=== PATIENT | female | born 1970 | race Hispanic/Latino ===

== ENCOUNTER 2022-01-02 21:46 | Emergency (ER) | payer OTHER ==
[~2022-01-02] VITALS: Ht 152.4 cm; Wt 77.1 kg
[~2022-01-02 21:46] MED LIST: CRESTOR20 MG PO; DIOVAN HCT 1601 EACH; GLUCOPHAGE500 MG PO; [UNRECOGNIZED DRUG - REMARK]
[2022-01-02] MEDS ORDERED: TETANUS/DIPHTHERIA TOX ADULT 0.5 ML SYR IM ONE (22:15)
[2022-01-02] MEDS ORDERED: HYDROCODONE/APAP 5MG-325MG TAB PO ONE (22:15)
[2022-01-02] MEDS ORDERED: ULTRAM50 MG PO (22:41)
[2022-01-02] MEDS ORDERED: CEPHALEXIN500 MG PO (22:43)
== END 2022-01-02 22:50 | disposition home or self-care (01) ==
LOC: ER 21:53
DX: T23.232A Burn of second degree of multiple left fingers (nail), not including thumb, initial encounter (principal); T23.231A Burn of second degree of multiple right fingers (nail), not including thumb, initial encounter; X19.XXXA Contact with other heat and hot substances, initial encounter; Y92.89 Other specified places as the place of occurrence of the external cause; E78.00 Pure hypercholesterolemia, unspecified; Z98.84 Bariatric surgery status
CPT/HCPCS: 90471; 90714; 99284